=== PATIENT | male | born 1980 | race African-American/Black ===

== ENCOUNTER 2019-03-30 11:19 | Emergency (ER) | payer OTHER ==
--- NOTE | 2019-03-30 12:00 | ER ---
Nurse's Notes [facility] Name: Jeet Martinez Age: 38 yrs Sex: Male : 1980 Arrival Date: 03/30/2019 Time: 11:24 Bed 11 Private MD: Diagnosis: Zoster [herpes zoster] Presentation: 03/30 11:39 Presenting complaint: Patient states: R sided facial swelling and pain that began ph yesterday, denies fever, rash noted to R side of upper lip and near R nare. Transition of care: patient was not received from another setting of care. Onset of symptoms was March 30, 2019. Risk Assessment: Do you want to hurt yourself or someone else? Patient reports no desire to harm self or others. Initial Sepsis Screen: Does the patient meet any 2 criteria? No. Patient's initial sepsis screen is negative. Does the patient have a suspected source of infection? No. Patient's initial sepsis screen is negative. Care prior to arrival: None. 11:39 Method Of Arrival: Ambulatory ph 11:39 Acuity: ANGELA 4 ph Historical: - Allergies: 11:43 Bactrim; ph - Home Meds: 11:43 Trulicity subcutaneous subcutaneous [Active]; ph - PMHx: 11:43 Diabetes - NIDDM; ph - Immunization history:: Adult Immunizations unknown. - Social history:: Smoking status: Patient uses tobacco products, cigars. - Ebola Screening: : No symptoms or risks identified at this time. Screenin:10 Abuse screen: Denies threats or abuse. Denies injuries from another. Nutritional ss screening: No deficits noted. Tuberculosis screening: Never had TB. Fall Risk None identified. Assessment: 12:10 Reassessment: Patient appears in no apparent distress at this time. Patient and/or ss family updated on plan of care and expected duration. Pain level reassessed. Patient is alert, oriented x 3, equal unlabored respirations, skin warm/dry/pink. Vital Signs: 11:42 BP 125 / 93; Pulse 88; Resp 18; Temp 98.3; Pulse Ox 98% on R/A; Weight 158.76 kg; ph Height 6 ft. 6 in. (198.12 cm); Pain 9/10; 11:42 Body Mass Index 40.45 (158.76 kg, 198.12 cm) ph ED Course: 11:24 Patient arrived in ED. mr 11:42 Triage completed. ph 11:42 Arm band placed on left wrist. 11:45 Kasi Zamora PA is PHCP. [facility] 11:45 Presley Ordonez MD is Attending Physician. [facility] 12:10 Valarie Mina, SAM is Primary Nurse. ss 12:10 Patient has correct armband on for positive identification. Bed in low position. Call ss light in reach. 12:10 No provider procedures requiring assistance completed. Patient did not have IV access ss during this emergency room visit. Administered Medications: No medications were administered Outcome: 11:58 Discharge ordered by . [facility] 12:10 Discharged to home ambulatory, with family. ss 12:10 Condition: good 12:10 Discharge instructions given to patient. 12:12 Patient left the ED. ss Signatures: Kasi Zamora PA PA jm Mini Bettencourt mr Valarie Mina, RN RN Candice Steward RN RN
--- NOTE | 2019-03-30 12:00 | EDPHYS ---
Physician Documentation [facility] Name: Jeet Martinez Age: 38 yrs Sex: Male : 1980 Arrival Date: 03/30/2019 Time: 11:24 Bed 11 Private MD: ED Physician Presley Ordonez HPI: 03/30 11:49 This 38 yrs old Black Male presents to ER via Ambulatory with complaints of Facial jmm Swelling. 11:49 The rash is located on the face. Onset: The symptoms/episode began/occurred gradually, jmm 1 day(s) ago. Associated signs and symptoms: Pertinent positives: Pain Pertinent negatives: fever. This is a 38 year old male with a history of DM that presents to the ED with complaints of right sided facial pain and rash. Symptoms began yesterday. Patient denies fever. Patient denies injury. . Historical: - Allergies: 11:43 Bactrim; ph - Home Meds: 11:43 Trulicity subcutaneous subcutaneous [Active]; ph - PMHx: 11:43 Diabetes - NIDDM; ph - Immunization history:: Adult Immunizations unknown. - Social history:: Smoking status: Patient uses tobacco products, cigars. - Ebola Screening: : No symptoms or risks identified at this time. ROS: 11:49 Constitutional: Negative for fever, chills, and weight loss, Cardiovascular: Negative jmm for chest pain, palpitations, and edema, Respiratory: Negative for shortness of breath, cough, wheezing, and pleuritic chest pain. 11:49 Skin: Positive for rash, swelling. 11:49 All other systems are negative. Exam: 11:49 Constitutional: This is a well developed, well nourished patient who is awake, alert, jmm and in no acute distress. 11:49 Eyes: EOMI, no conjunctival erythema appreciated ENT: Moist Mucus Membranes Neck: Trachea midline, Supple Chest/axilla: Normal chest wall appearance and motion. Cardiovascular: Regular rate and rhythm. No edema appreciated Respiratory: Normal respirations, no respiratory distress appreciated Abdomen/GI: Non distended, soft 11:49 Head/face: right sided facial rash. 11:49 Skin: vesicular and erythematous rash noted to the right side of the face. . 11:49 Neuro: Orientation: is normal, Mentation: is normal, Memory: is normal. 11:49 Psych: Behavior/mood is pleasant, cooperative. Vital Signs: 11:42 BP 125 / 93; Pulse 88; Resp 18; Temp 98.3; Pulse Ox 98% on R/A; Weight 158.76 kg; ph Height 6 ft. 6 in. (198.12 cm); Pain 9/10; 11:42 Body Mass Index 40.45 (158.76 kg, 198.12 cm) ph MDM: 11:49 Patient medically screened. [facility] 11:58 Data reviewed: vital signs, nurses notes. Counseling: I had a detailed discussion with scott the patient and/or guardian regarding: the historical points, exam findings, and any diagnostic results supporting the discharge/admit diagnosis, the need for outpatient follow up, to return to the emergency department if symptoms worsen or persist or if there are any questions or concerns that arise at home. 11:58 ED course: Patient is alert and non toxic in appearance in the ED. Symptoms appear [facility] consistent with Herpes Zoster. Patient is given strict return precautions. patient understood and agrees with the plan of care.. Administered Medications: No medications were administered Disposition: 14:04 Co-signature as Attending Physician, Presley Ordonez MD I agree with the assessment and [facility] plan of care. Disposition: 03/30/19 11:58 Discharged to Home. Impression: Zoster [herpes zoster]. - Condition is Stable. - Discharge Instructions: Shingles. - Prescriptions for Cephalexin 500 mg Oral Capsule - take 1 capsule by ORAL route every 6 hours for 10 days; 40 capsule. Tylenol- Codeine #3 300-30 mg Oral Tablet - take 1 tablet by ORAL route every 6 hours As needed; 20 tablet. Valtrex 1 g Oral Tablet - take 1 tablet by ORAL route every 8 hours for 7 days; 21 tablet. - Medication Reconciliation Form, Thank You Letter, Antibiotic Education, Prescription Opioid Use form. - Follow up: Private Physician; When: 2 - 3 days; Reason: Recheck today's complaints, Continuance of care, Re-evaluation by your physician. Signatures: Presley Ordonez MD MD cha Mickail, Joel, PA PA jmm Smirch, Shelby, RN RN Candice Steward RN RN ph Corrections: (The following items were deleted from the chart) 12:12 11:58 03/30/2019 11:58 Discharged to Home. Impression: Zoster [herpes zoster]. ss Condition is Stable. Forms are Medication Reconciliation Form, Thank You Letter, Antibiotic Education, Prescription Opioid Use. Follow up: Private Physician; When: 2 - 3 days; Reason: Recheck today's complaints, Continuance of care, Re-evaluation by your physician. scott
== END 2019-03-30 12:12 | disposition home or self-care (01) ==
LOC: ER 11:19
DX: B02.9 Zoster without complications (principal); E11.9 Type 2 diabetes mellitus without complications; Z79.4 Long term (current) use of insulin; Z72.0 Tobacco use; Z88.1 Allergy status to other antibiotic agents
CPT/HCPCS: 99281

== ENCOUNTER 2019-04-01 12:14 | Emergency (ER) | payer OTHER ==
--- NOTE | 2019-04-01 13:15 | EDPHYS ---
Physician Documentation [facility] Name: Jeet Martinez Age: 38 yrs Sex: Male : 1980 Arrival Date: 04/01/2019 Time: 12:17 Bed 24 Private MD: ED Physician Andrés Hercules HPI: 04/01 18:18 This 38 yrs old Black Male presents to ER via Wheelchair with complaints of Facial snw Swelling, Eye Pain, Ear Pain. 18:18 Onset: The symptoms/episode began/occurred 1 week(s) ago, and became worse and became snw persistent. Associated signs and symptoms: Pertinent positives: periorbital swelling to right lower area, taking valtrex, keflex, states swelling is a little worse to right lower eyelid. Modifying factors: The patient symptoms are alleviated by nothing, pt taking T#3 and is moderately sedate. The patient has not experienced similar symptoms in the past. The patient has been recently seen by a physician: The patient has been recently seen at the [facility] Emergency Department, for similar complaints was given a prescription for antibiotics, antivirals. pt diabetic and is supposed to take trulicity weekly, pt not aware of his normal blood sugars, vision has been poor for some time, does not follow up for DM check up visits. Discussed blindness is a real issue with his past and current medical problems. Must f/u opthalmology aleyda. Historical: - Allergies: 12:21 Bactrim; la1 - PMHx: 12:21 Diabetes - NIDDM; Asthma; la1 - Immunization history:: Adult Immunizations up to date. - Social history:: Smoking status: Patient uses tobacco products, denies chronic smoking, but will smoke occasionally. - Ebola Screening: : No symptoms or risks identified at this time. ROS: 18:16 Constitutional: Negative for fever, chills, and weight loss, ENT: Negative for injury, snw pain, and discharge, Neck: Negative for injury, pain, and swelling, Cardiovascular: Negative for chest pain, palpitations, and edema, Respiratory: Negative for shortness of breath, cough, wheezing, and pleuritic chest pain, Abdomen/GI: Negative for abdominal pain, nausea, vomiting, diarrhea, and constipation, Back: Negative for injury and pain, : Negative for injury, bleeding, discharge, and swelling, MS/Extremity: Negative for injury and deformity, Skin: Negative for injury, rash, and discoloration, Neuro: Negative for headache, weakness, numbness, tingling, and seizure. 18:16 Eyes: Positive for pain, swelling, of the right lower eyelid. Exam: 18:16 Constitutional: This is a well developed, well nourished patient who is awake, alert, snw and in no acute distress. Head/Face: Normocephalic, atraumatic. ENT: Nares patent. No nasal discharge, no septal abnormalities noted. Tympanic membranes are normal and external auditory canals are clear. Oropharynx with no redness, swelling, or masses, exudates, or evidence of obstruction, uvula midline. Mucous membranes moist. Neck: Trachea midline, no thyromegaly or masses palpated, and no cervical lymphadenopathy. Supple, full range of motion without nuchal rigidity, or vertebral point tenderness. No Meningismus. Chest/axilla: Normal chest wall appearance and motion. Nontender with no deformity. No lesions are appreciated. Cardiovascular: Regular rate and rhythm with a normal S1 and S2. No gallops, murmurs, or rubs. Normal PMI, no JVD. No pulse deficits. Respiratory: Lungs have equal breath sounds bilaterally, clear to auscultation and percussion. No rales, rhonchi or wheezes noted. No increased work of breathing, no retractions or nasal flaring. Abdomen/GI: Soft, non-tender, with normal bowel sounds. No distension or tympany. No guarding or rebound. No evidence of tenderness throughout. Back: No spinal tenderness. No costovertebral tenderness. Full range of motion. Skin: Warm, dry with normal turgor. Normal color with no rashes, no lesions, and no evidence of cellulitis. MS/ Extremity: Pulses equal, no cyanosis. Neurovascular intact. Full, normal range of motion. Neuro: Awake and alert, GCS 15, oriented to person, place, time, and situation. Cranial nerves II-XII grossly intact. Motor strength 5/5 in all extremities. Sensory grossly intact. Cerebellar exam normal. Normal gait. 18:16 Eyes: Periorbital structures: swelling, that is mild, on the right lower eyelid, Pupils: no acute changes, Extraocular movements: intact throughout, Conjunctiva: normal, no chemosis, no excoriation, no exudate, no injection, no subconjunctival hemorrhage no abnormal tearing. Vital Signs: 12:24 BP 140 / 91; Pulse 76; Resp 16; Temp 97.6; Pulse Ox 98% on R/A; Weight 154.22 kg; la1 Height 6 ft. 6 in. (198.12 cm); 12:24 Body Mass Index 39.29 (154.22 kg, 198.12 cm) la1 Visual Acuity: 12:33 Left Eye Visual acuity 20/70, Pupil size 3 mm, ; Right Eye Visual acuity 20/100, Pupil la1 size 3 mm, ; Both Eyes Visual acuity 20/70; With Lenses; MDM: 12:53 Patient medically screened. snw 18:18 Data reviewed: vital signs, nurses notes. Data interpreted: Pulse oximetry: on room air snw is 98 %. Interpretation: normal. Counseling: I had a detailed discussion with the patient and/or guardian regarding: the historical points, exam findings, and any diagnostic results supporting the discharge/admit diagnosis, the need for outpatient follow up, to return to the emergency department if symptoms worsen or persist or if there are any questions or concerns that arise at home. Special discussion: I have referred the patient to see his PCP for further evaluation of high blood pressure. Based on the history and exam findings, there is no indication for further emergent testing or inpatient evaluation. I discussed with the patient/guardian the need to see the opthamologist for further evaluation of the symptoms, I discussed with the patient/guardian the need to see the primary care provider for further evaluation of the symptoms. Administered Medications: 13:35 Not Given (Medication unavailable): Viroptic 1 % 1 drops Ophthalmic once aj Disposition: 04/01/19 13:15 Discharged to Home. 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 - Condition is Stable. - Discharge Instructions: How to Use Eye Drops and Eye Ointments, Shingles, Hand Washing. - Prescriptions for Viroptic 1 % Ophthalmic drops - instill 1 drop by OPHTHALMIC route every 4 hours to right eye; 1 bottle. - Medication Reconciliation Form, Thank You Letter, Antibiotic Education, Prescription Opioid Use form. - Follow up: Tony Schuler MD; When: 48 Hours; Reason: Recheck today's complaints, Continuance of care. - Problem is new. - Symptoms have worsened. - Notes: Please continue current medications. Addendum: 04/03/2019 08:03 Co-signature as Attending Physician, Andrés Hercules MD I agree with the assessment and k dr plan of care. Signatures: Denice Golden, RN RN Andrés Huynh MD MD [facility] Ritu Cheema, SITE COORDINATOR-C SITE COORDINATOR-Csnw Patricio Morales RN RN la1 Corrections: (The following items were deleted from the chart) 04/01 13:23 13:15 04/01/2019 13:15 Discharged to Home. Impression: Zoster [herpes zoster]. snw Condition is Stable. Forms are Medication Reconciliation Form, Thank You Letter, Antibiotic Education, Prescription Opioid Use. Follow up: Tony Schuler; When: 48 Hours; Reason: Recheck today's complaints, Continuance of care. Problem is new. Symptoms have worsened. snw 13:35 13:23 04/01/2019 13:15 Discharged to Home. Impression: Zoster [herpes zoster]; herpes aj opthalmicus. Condition is Stable. Discharge Instructions: How to Use Eye Drops and Eye Ointments, Shingles, Hand Washing. Prescriptions for Viroptic 1 % Ophthalmic drops - instill 1 drop by OPHTHALMIC route every 4 hours to right eye; 1 bottle. and Forms are Medication Reconciliation Form, Thank You Letter, Antibiotic Education, Prescription Opioid Use. Follow up: Tony Schuler; When: 48 Hours; Reason: Recheck today's complaints, Continuance of care. Problem is new. Symptoms have worsened. snw
--- NOTE | 2019-04-01 13:15 | ER ---
Nurse's Notes [facility] Name: Jeet Martinez Age: 38 yrs Sex: Male : 1980 Arrival Date: 04/01/2019 Time: 12:17 Bed 24 Private MD: Diagnosis: Zoster [herpes zoster];herpes opthalmicus Presentation: 04/01 12:22 Presenting complaint: Patient states: Seem her Kwesi, dx with shingles. Close to right la1 eye and mouth, instructed to return for worsening sx. Pt reports right eye pain and slightly blurry vision. Transition of care: patient was not received from another setting of care. Mechanism of Injury: No Mechanism of Injury. The patient denies any loss of vision. Onset of symptoms was April 01, 2019. Risk Assessment: Do you want to hurt yourself or someone else? Patient reports no desire to harm self or others. Initial Sepsis Screen: Does the patient meet any 2 criteria? No. Patient's initial sepsis screen is negative. Does the patient have a suspected source of infection? No. Patient's initial sepsis screen is negative. Care prior to arrival: None. 12:22 Method Of Arrival: Wheelchair la1 12:22 Acuity: ANGELA 3 la1 Historical: - Allergies: 12:21 Bactrim; la1 - PMHx: 12:21 Diabetes - NIDDM; Asthma; la1 - Immunization history:: Adult Immunizations up to date. - Social history:: Smoking status: Patient uses tobacco products, denies chronic smoking, but will smoke occasionally. - Ebola Screening: : No symptoms or risks identified at this time. Screenin:33 Abuse screen: Denies threats or abuse. Denies injuries from another. Nutritional aj screening: No deficits noted. Tuberculosis screening: No symptoms or risk factors identified. Fall Risk None identified. Assessment: 13:33 General: Appears in no apparent distress. uncomfortable, Behavior is calm, cooperative, aj appropriate for age. Pain: Complains of pain in right eye, right cheek, nose and mouth. Neuro: Level of Consciousness is awake, alert, obeys commands, Oriented to person, place, time, situation, Appropriate for age. Respiratory: Airway is patent Respiratory effort is even, unlabored, Respiratory pattern is regular, symmetrical. EENT: Eyes Sclera/Cornea are reddened in outer aspect of conjuctiva of right eye and inner aspect of conjuctiva of right eye. Derm: Skin is intact, is healthy with good turgor, Skin is pink, warm \T\ dry. normal. Vital Signs: 12:24 BP 140 / 91; Pulse 76; Resp 16; Temp 97.6; Pulse Ox 98% on R/A; Weight 154.22 kg; la1 Height 6 ft. 6 in. (198.12 cm); 12:24 Body Mass Index 39.29 (154.22 kg, 198.12 cm) la1 Visual Acuity: 12:33 Left Eye Visual acuity 20/70, Pupil size 3 mm, ; Right Eye Visual acuity 20/100, Pupil la1 size 3 mm, ; Both Eyes Visual acuity 20/70; With Lenses; ED Course: 12:17 Patient arrived in ED. rg4 12:21 Arm band placed on left wrist. la1 12:24 Triage completed. la1 12:46 Ritu Cheema FNP-C is [facility]. snw 12:46 Andrés Hercules MD is Attending Physician. snw 13:00 Denice Golden, RN is Primary Nurse. aj 13:14 Tony Schuler MD is Referral Physician. snw 13:33 Patient has correct armband on for positive identification. aj 13:33 No provider procedures requiring assistance completed. Patient did not have IV access aj during this emergency room visit. Administered Medications: 13:35 Not Given (Medication unavailable): Viroptic 1 % 1 drops Ophthalmic once aj Outcome: 13:15 Discharge ordered by MD. snw 13:33 Discharged to home ambulatory. aj 13:33 Condition: good 13:33 Discharge instructions given to patient, Instructed on discharge instructions, follow up and referral plans. medication usage, Demonstrated understanding of instructions, follow-up care, medications, Prescriptions given X 1. 13:35 Patient left the ED. aj Signatures: Denice Golden, RN Ritu Monzon FNP-C FNP-Patricio Ramirez RN RN Marifer Merida rg4
== END 2019-04-01 13:35 | disposition home or self-care (01) ==
LOC: ER 12:14
DX: B02.30 Zoster ocular disease, unspecified (principal); E11.9 Type 2 diabetes mellitus without complications; Z72.0 Tobacco use
CPT/HCPCS: 99282

== ENCOUNTER 2019-07-07 20:37 | Emergency (ER) | payer OTHER, SELFPAY ==
--- OUTSIDE RECORDS SUMMARY | 2019-07-07 20:46 | XMS REPORT ---
:1980 Author Organization [employer] Care Team Providers Name Role Phone Nora Sanon Provider Role Unavailable Allergies No Known Allergies Problems Problem Type Condition Code Onset Dates Condition Status Problem High blood pressure I10 Active Problem Morbid (severe) obesity due to E66.01 Active excess calories Problem Body mass index (BMI) of 45.0-49.9 Z68.42 Active in adult Problem Uncontrolled type 2 diabetes E11.65 Active mellitus with hyperglycemia Problem Asthma, unspecified asthma J45.909 Active severity, unspecified whether complicated, unspecified whether persistent Problem Diarrhea, unspecified type R19.7 Active Problem Cough R05 Active Problem Diabetes E11.9 Active Problem Essential hypertension I10 Active Problem Polyarthralgia M25.50 Active Problem Nausea R11.0 Active Problem Asthma J45.909 Active Problem Morbid obesity E66.01 Active Medications No Known Medications Results No Known Results Summary Purpose [employer] Submission
--- OUTSIDE RECORDS SUMMARY | 2019-07-07 20:46 | XMS REPORT ---
:1980 Author Organization [employer] Care Team Providers Name Role Phone Jarrettvianca Nora Provider Role Unavailable Allergies, Adverse Reactions, Alerts Substance Reaction Event Type Bactrim Info Not Available Drug Allergy Problems Problem Type Condition Code Onset Dates Condition Status Problem High blood pressure I10 Active Problem Morbid (severe) obesity due to E66.01 Active excess calories Problem Body mass index (BMI) of 45.0-49.9 Z68.42 Active in adult Problem Cough R05 Active Assessment Morbid obesity E66.01 Active Problem Diabetes E11.9 Active Assessment Body mass index (BMI) of 45.0-49.9 Z68.42 Active in adult Assessment Polyarthralgia M25.50 Active Problem Essential hypertension I10 Active Problem Polyarthralgia M25.50 Active Problem Nausea R11.0 Active Problem Asthma J45.909 Active Problem Morbid obesity E66.01 Active Assessment Cough R05 Active Assessment Asthma, unspecified asthma J45.909 Active severity, unspecified whether complicated, unspecified whether persistent Assessment Diarrhea, unspecified type R19.7 Active Assessment Nausea R11.0 Active Problem Uncontrolled type 2 diabetes E11.65 Active mellitus with hyperglycemia Assessment Essential hypertension I10 Active Problem Asthma, unspecified asthma J45.909 Active severity, unspecified whether complicated, unspecified whether persistent Assessment Uncontrolled type 2 diabetes E11.65 Active mellitus with hyperglycemia Problem Diarrhea, unspecified type R19.7 Active Medications Medication Code Code Instructions Start End Date Status Dosage System Date Pen [place] [facility] 15057182073 32G X 6 MM April 22 Active as directed subcutaneous To 2019 be used with Lantus Solostar Pen once daily Trulicity [facility] 54091157846 0.75mg/0.5ml SQ Active one once a week injection Valacyclovir [facility] 33298965520 1 GM Orally Active 1 tablet HCl Once a day Trulicity [facility] 41274223613 1.5mg/0.5ml April 22January Active 1 injection subcutaneous 2018 (1.5 mg) Once a week Cephalexin [facility] 22397200785 500 MG Orally Active 1 capsule every 12 hrs Tylenol # 3 NDC 0 300/30mg PO BID Active one tab PRN Lantus SoloStar [facility] 58596191883 100 UNIT/ML April 22, Active as directed Subcutaneous 2018 units once daily Results Name Result Date Reference Range Unit Abnormality Flag GLUCOSE FINGER ----Result [id number] Summary Purpose eClinicalWorks Submission
[2019-07-07] MEDS ORDERED: LIDOCAINE 1% MPF 5 ML VIAL ONE ×2 (21:31→21:59)
[2019-07-07] MEDS ORDERED: MORPHINE 4 MG/ML SYR ONE (21:59)
[2019-07-07] MEDS ORDERED: ONDANSETRON 4 MG (ODT) TAB ONE (22:00)
[2019-07-07] MEDS ORDERED: TETANUS & DIPHTHERIA TOX,ADULT 0.5 ML VIAL ONE (22:00)
--- NOTE | 2019-07-07 23:00 | ER ---
Nurse's Notes [facility] Name: Jeet Martinez Age: 38 yrs Sex: Male : 1980 Arrival Date: 07/07/2019 Time: 20:40 Bed 17 Private MD: Diagnosis: Cutaneous abscess of perineum Presentation: 07/07 20:48 Presenting complaint: Patient states: I have had a cyst or something on my taint for a la1 few days but today it started swelling worse and hurting. Transition of care: patient was not received from another setting of care. Onset of symptoms was July 07, 2019. Risk Assessment: Do you want to hurt yourself or someone else? Patient reports no desire to harm self or others. Initial Sepsis Screen: Does the patient meet any 2 criteria? No. Patient's initial sepsis screen is negative. Does the patient have a suspected source of infection? No. Patient's initial sepsis screen is negative. Care prior to arrival: None. 20:48 Method Of Arrival: Ambulatory la1 20:48 Acuity: ANGELA 3 la1 Historical: - Allergies: 20:47 Bactrim; la1 - PMHx: 20:47 Asthma; Diabetes - NIDDM; Hypertension; la1 - Immunization history:: Adult Immunizations up to date. - Social history:: Smoking status: Patient/guardian denies using tobacco. - Ebola Screening: : No symptoms or risks identified at this time. Screenin:02 Abuse screen: Denies threats or abuse. Nutritional screening: No deficits noted. jd3 Tuberculosis screening: No symptoms or risk factors identified. Fall Risk Ambulatory Aid- None/Bed Rest/Nurse Assist (0 pts). Gait- Normal/Bed Rest/Wheelchair (0 pts) Mental Status- Oriented to own ability (0 pts). Total Campos Fall Scale indicates No Risk (0-24 pts). Assessment: 20:55 General: Appears in no apparent distress. uncomfortable, Behavior is calm, cooperative, jd3 appropriate for age. Pain: Complains of pain in perineum Quality of pain is described as sharp, tender. Neuro: Level of Consciousness is awake, alert, obeys commands, Oriented to person, place, time, situation. Cardiovascular: Capillary refill < 3 seconds Patient's skin is warm and dry. Respiratory: Airway is patent Respiratory effort is even, unlabored, Respiratory pattern is regular, symmetrical. GI: No signs and/or symptoms were reported involving the gastrointestinal system. : cyst noted to the perineum. EENT: No signs and/or symptoms were reported regarding the EENT system. Derm: Skin is intact, Skin is dry, Skin is normal, Skin temperature is warm. Musculoskeletal: Circulation, motion, and sensation intact. Range of motion: intact in all extremities. 22:18 Reassessment: Patient appears in no apparent distress at this time. No changes from jd3 previously documented assessment. Patient and/or family updated on plan of care and expected duration. Pain level reassessed. Patient is alert, oriented x 3, equal unlabored respirations, skin warm/dry/pink. awaiting I\T\D. 23:49 Reassessment: Patient appears in no apparent distress at this time. Patient and/or jd3 family updated on plan of care and expected duration. Pain level reassessed. Patient is alert, oriented x 3, equal unlabored respirations, skin warm/dry/pink. pt requesting blood sugar to be taken. provider notified. Patient states feeling better. 07/08 00:04 Reassessment: Patient appears in no apparent distress at this time. Patient and/or jd3 family updated on plan of care and expected duration. Pain level reassessed. Patient is alert, oriented x 3, equal unlabored respirations, skin warm/dry/pink. reported understanding of discharge instructions. pt reported that he will care for his high blood sugar when he gets home. Patient states feeling better. Vital Signs: 07/07 20:47 BP 136 / 93; Pulse 96; Resp 16; Temp 98.9(TE); Pulse Ox 100% on R/A; Weight 147.42 kg; la1 Height 6 ft. 6 in. (198.12 cm); 07/08 00:05 BP 134 / 92; Pulse 74; Resp 17 S; Pulse Ox 97% on R/A; jd3 07/07 20:47 Body Mass Index 37.56 (147.42 kg, 198.12 cm) la1 ED Course: 07/07 20:40 Patient arrived in ED. mr 20:47 Arm band placed on right wrist. la1 20:48 Triage completed. la1 20:51 Eamon Sanchez NP is PHCP. pm1 20:51 Yossi Flores MD is Attending Physician. pm1 20:52 Ross Holcomb RN is Primary Nurse. jd3 21:03 Patient has correct armband on for positive identification. Placed in gown. Bed in low jd3 position. Call light in reach. Side rails up X 1. Adult w/ patient. 22:59 Corbin Ochoa MD is Referral Physician. pm1 23:50 No provider procedures requiring assistance completed. Patient did not have IV access jd3 during this emergency room visit. 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 Exp: jd3 03/20/2021. Lot #: [id number]. } Route: IM; Site: left deltoid; 23:15 Follow up: Response: No adverse reaction jd3 22:40 Drug: Lidocaine (1 %) 5 ml {Note: given by Eamon Sanchez COMMERCIAL GREEN BUILDING DESIGNER.} Volume: 5 ml; Route: jd3 Infiltration; 23:40 Follow up: Response: No adverse reaction jd3 22:40 Drug: Marcaine-Epinephrine (0.5 %) 10 ml {Note: given by Eamon Sanchez COMMERCIAL GREEN BUILDING DESIGNER.} Route: jd3 Infiltration; 23:40 Follow up: Response: No adverse reaction jd3 23:17 Drug: Clindamycin 600 mg {Note: given in KARLA deltoid, 2 ml each side..} Route: IM; jd3 Site: Other; 07/08 00:09 Follow up: Response: No adverse reaction jd3 07/07 23:18 Drug: Doxycycline 100 mg Route: PO; jd3 07/08 00:09 Follow up: Response: No adverse reaction jd3 07/07 23:29 Drug: [place] 10 mg-325 mg 1 tabs Route: PO; jd3 07/08 00:10 Follow up: Response: No adverse reaction; RASS: Alert and Calm (0) jd3 Point of Care Testing: Blood Glucose: 07/07 23:49 Blood Glucose: 311 mg/dL; jd3 Ranges: Outcome: 22:58 Discharge ordered by . pm1 07/08 00:06 Discharged to home ambulatory, with family. jd3 Condition: stable Discharge instructions given to patient, family, Instructed on discharge instructions, follow up and referral plans. medication usage, Demonstrated understanding of instructions, follow-up care, medications, Prescriptions given X 3. 00:10 Patient left the ED. jd3 Signatures: Mini BettencourtPatricio willis RN RN la1 Eamon Sanchez NP COMMERCIAL GREEN BUILDING DESIGNER pm1 Ross Holcomb RN RN jd3 Corrections: (The following items were deleted from the chart) 00:07 00:04 Reassessment: Patient appears in no apparent distress at this time. Patient jd3 and/or family updated on plan of care and expected duration. Pain level reassessed. Patient is alert, oriented x 3, equal unlabored respirations, skin warm/dry/pink. reported understanding of discharge instructions. Patient states feeling better. jd3
--- NOTE | 2019-07-07 23:00 | EDPHYS ---
Physician Documentation [facility] Name: Jeet Martinez Age: 38 yrs Sex: Male : 1980 Arrival Date: 07/07/2019 Time: 20:40 Bed 17 Private MD: ED Physician Yossi Flores HPI: 07/07 21:34 This 38 yrs old Black Male presents to ER via Ambulatory with complaints of Cyst. pm1 21:34 Onset: The symptoms/episode began/occurred 1 week(s) ago. Associated signs and pm1 symptoms: Pertinent negatives: fever. 21:34 The patient presents with an abscess of the perineum. Possible cause(s): unknown. pm1 Modifying factors: the symptoms are alleviated by nothing, the symptoms are aggravated by sitting, touching. Severity of symptoms: in the emergency department the symptoms are actually worse. The patient has experienced similar episodes in the past, a few times. The patient has not recently seen a physician, and does not have an established primary care provider, just moved to [facility], in February. Historical: - Allergies: 20:47 Bactrim; la1 - PMHx: 20:47 Asthma; Diabetes - NIDDM; Hypertension; la1 - Immunization history:: Adult Immunizations up to date. - Social history:: Smoking status: Patient/guardian denies using tobacco. - Ebola Screening: : No symptoms or risks identified at this time. ROS: 21:34 Constitutional: Negative for fever, chills, and weight loss, Eyes: Negative for injury, pm1 pain, redness, and discharge, ENT: Negative for injury, pain, and discharge, Neck: Negative for injury, pain, and swelling, Cardiovascular: Negative for chest pain, palpitations, and edema, Respiratory: Negative for shortness of breath, cough, wheezing, and pleuritic chest pain, Abdomen/GI: Negative for abdominal pain, nausea, vomiting, diarrhea, and constipation, Back: Negative for injury and pain, MS/Extremity: Negative for injury and deformity. 21:34 Neuro: Negative for headache, weakness, numbness, tingling, and seizure. 21:34 Skin: Positive for abscess, of the perineum. Exam: 21:34 Constitutional: This is a well developed, well nourished patient who is awake, alert, pm1 and in no acute distress. Head/Face: Normocephalic, atraumatic. Chest/axilla: Normal chest wall appearance and motion. Nontender with no deformity. No lesions are appreciated. Cardiovascular: Regular rate and rhythm with a normal S1 and S2. No gallops, murmurs, or rubs. Normal PMI, no JVD. No pulse deficits. Respiratory: Lungs have equal breath sounds bilaterally, clear to auscultation and percussion. No rales, rhonchi or wheezes noted. No increased work of breathing, no retractions or nasal flaring. Abdomen/GI: Soft, non-tender, with normal bowel sounds. No distension or tympany. No guarding or rebound. No evidence of tenderness throughout. Back: No spinal tenderness. No costovertebral tenderness. Full range of motion. 21:34 Abdomen/GI: Rectal exam: is unremarkable, rectal tone normal, tenderness, is not appreciated. 21:34 Skin: Appearance: normal except for affected area, abscess, of the left side of perineum, no drainage, or surrounding cellulitis. Positive for fluctuance. Vital Signs: 20:47 BP 136 / 93; Pulse 96; Resp 16; Temp 98.9(TE); Pulse Ox 100% on R/A; Weight 147.42 kg; la1 Height 6 ft. 6 in. (198.12 cm); 07/08 00:05 BP 134 / 92; Pulse 74; Resp 17 S; Pulse Ox 97% on R/A; jd3 07/07 20:47 Body Mass Index 37.56 (147.42 kg, 198.12 cm) la1 MDM: 07/07 20:51 Patient medically screened. pm1 21:27 ED course: Recommended hospitalization to patient for surgical incision and drainage of pm1 abscess. Patient does not want to be hospitalized. Patient requested to have the ER perform incision and drainage. 22:57 Data reviewed: vital signs. Data interpreted: Pulse oximetry: on room air is 100 %. pm1 Interpretation: normal. Counseling: I had a detailed discussion with the patient and/or guardian regarding: the historical points, exam findings, and any diagnostic results supporting the discharge/admit diagnosis, the need for outpatient follow up, for definitive care, a general surgeon, to return to the emergency department if symptoms worsen or persist or if there are any questions or concerns that arise at home. 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 Exp: jd3 03/20/2021. Lot #: [id number]. } Route: IM; Site: left deltoid; 23:15 Follow up: Response: No adverse reaction jd3 22:40 Drug: Lidocaine (1 %) 5 ml {Note: given by Eamon Sanchez SHAKER TENDER.} Volume: 5 ml; Route: jd3 Infiltration; 23:40 Follow up: Response: No adverse reaction jd3 22:40 Drug: Marcaine-Epinephrine (0.5 %) 10 ml {Note: given by Eamon Sanchez SHAKER TENDER.} Route: jd3 Infiltration; 23:40 Follow up: Response: No adverse reaction jd3 23:17 Drug: Clindamycin 600 mg {Note: given in KARLA deltoid, 2 ml each side..} Route: IM; jd3 Site: Other; 07/08 00:09 Follow up: Response: No adverse reaction jd3 07/07 23:18 Drug: Doxycycline 100 mg Route: PO; jd3 07/08 00:09 Follow up: Response: No adverse reaction jd3 07/07 23:29 Drug: Wright 10 mg-325 mg 1 tabs Route: PO; jd3 07/08 00:10 Follow up: Response: No adverse reaction; RASS: Alert and Calm (0) jd3 Point of Care Testing: Blood Glucose: 07/07 23:49 Blood Glucose: 311 mg/dL; jd3 Ranges: Critical Glucose Levels:Adult <50 mg/dl or >400 mg/dl <40 mg/dl or >180 mg/dl Disposition: 07/08 00:13 Co-signature as Attending Physician, Yossi Flores MD. rn Disposition: 07/07/19 22:58 Discharged to Home. Impression: Cutaneous abscess of perineum. - Condition is Stable. - Discharge Instructions: Skin Abscess, Incision and Drainage. - Prescriptions for Clindamycin HCl 300 mg Oral Capsule - take 1 capsule by ORAL route every 6 hours for 10 days; 40 capsule. Tylenol- Codeine #3 300-30 mg Oral Tablet - take 2 tablets by ORAL route every 6 hours As needed; 20 tablet. Doxycycline Hyclate 100 mg Oral Tablet - take 1 tablet by ORAL route every 12 hours; 20 tablet. - Medication Reconciliation Form, Thank You Letter, Antibiotic Education, Prescription Opioid Use, Work release form form. - Follow up: Emergency Department; When: As needed; Reason: Worsening of condition. Follow up: Private Physician; When: 2 - 3 days; Reason: Recheck today's complaints, Continuance of care, Re-evaluation by your physician. Follow up: Corbin Ochoa MD; When: 2 - 3 days; Reason: Recheck today's complaints, Continuance of care, Re-evaluation by your physician. - Problem is new. - Symptoms have improved. Signatures: Dispatcher [employer] EDMS Yossi Flores MD MD rn Attema, Lee, RN RN la1 Eamon Sanchez, GIDEON SHAKER TENDER pm1 Ross Holcomb RN RN jd3 Corrections: (The following items were deleted from the chart) 07/07 22:59 22:58 07/07/2019 22:58 Discharged to Home. Impression: Cutaneous abscess of perineum. pm1 Condition is Stable. Forms are Medication Reconciliation Form, Thank You Letter, Antibiotic Education, Prescription Opioid Use. Follow up: Emergency Department; When: As needed; Reason: Worsening of condition. Follow up: Private Physician; When: 2 - 3 days; Reason: Recheck today's complaints, Continuance of care, Re-evaluation by your physician. Problem is new. Symptoms have improved. pm1 07/08 00:10 07/07 22:59 07/07/2019 22:58 Discharged to Home. Impression: Cutaneous abscess of jd3 perineum. Condition is Stable. Discharge Instructions: Skin Abscess, Incision and Drainage. Prescriptions for Clindamycin HCl 300 mg Oral Capsule - take 1 capsule by ORAL route every 6 hours for 10 days; 40 capsule, Tylenol-Codeine #3 300-30 mg Oral Tablet - take 2 tablets by ORAL route every 6 hours As needed; 20 tablet, Doxycycline Hyclate 100 mg Oral Tablet - take 1 tablet by ORAL route every 12 hours; 20 tablet. and Forms are Medication Reconciliation Form, Thank You Letter, Antibiotic Education, Prescription Opioid Use. Follow up: Emergency Department; When: As needed; Reason: Worsening of condition. Follow up: Private Physician; When: 2 - 3 days; Reason: Recheck today's complaints, Continuance of care, Re-evaluation by your physician. Follow up: Corbin Ochoa; When: 2 - 3 days; Reason: Recheck today's complaints, Continuance of care, Re-evaluation by your physician. Problem is new. Symptoms have improved. pm1
[2019-07-07] MEDS ORDERED: CLINDAMYCIN IV 150 MG/ML (4 mL) VIAL ONE (23:09)
[2019-07-07] MEDS ORDERED: DOXYCYCLINE 100 MG CAP PO ONE (23:09)
[2019-07-07] MEDS ORDERED: HYDROCODONE/APAP 10/325 TAB ONE (23:26)
== END 2019-07-08 00:10 | disposition home or self-care (01) ==
LOC: ER 20:37
DX: L02.215 Cutaneous abscess of perineum (principal); Z88.1 Allergy status to other antibiotic agents
CPT/HCPCS: 82962; 87070; 87205; 90471; 90714; 96372; 99283; S0077